=== PATIENT | female | born 1980 | race Caucasian/White ===

== ENCOUNTER → 2016-08-25 | Outpatient (CLI) | payer OTHER ==
[~2016-08-25] MED LIST: FERR1TAB23 PO; LORA10CA10; PANT40TA PO; PRENTAB26 PO; SERT-234 PO; TYLOTC500 PO
[2016-08-25 17:54] LABS: GTGD 50 Grams
== END | disposition home or self-care (01) ==
LOC: C.LAB1850 16:56
PROVIDERS: ATTEND Obstetrics & Gynecology
DX: O09.522 Supervision of elderly multigravida, second trimester (principal); Z3A.00 Weeks of gestation of pregnancy not specified

== ENCOUNTER → 2016-11-20 | Outpatient (CLI) | payer OTHER ==
[2016-11-20 18:48] LABS: URINE APPEARANCE CLEAR (CLEAR); URINE BILIRUBIN NEG (NEG); URINE COLOR YELLOW; URINE EPITHELIAL CELL AUTO >30 /lpf (0-5); URINE NITRITE NEG (NEG); URINE SPECIFIC GRAVITY 1.017 (1.000-1.030); UROBILINOGEN NEG (NEG)
[2016-11-20 18:51] LABS: MANUAL MICROSCOPIC REQUIRED? NO; REVIEW REQ? NO
== END | disposition home or self-care (01) ==
LOC: C.LABSPEC 18:02
PROVIDERS: ATTEND Obstetrics & Gynecology
DX: O09.523 Supervision of elderly multigravida, third trimester (principal); Z3A.00 Weeks of gestation of pregnancy not specified

== ENCOUNTER → 2016-11-20 | Outpatient (CLI) | payer OTHER ==
[2016-11-20 19:06] LABS: GTGD 50 Grams
== END | disposition home or self-care (01) ==
LOC: C.LAB1850 15:49
PROVIDERS: ATTEND Obstetrics & Gynecology
DX: O09.523 Supervision of elderly multigravida, third trimester (principal); Z3A.00 Weeks of gestation of pregnancy not specified

== ENCOUNTER → 2016-11-24 | Outpatient (CLI) | payer OTHER | END | disposition home or self-care (01) | LOC: C.LAB1850 07:00 | PROVIDERS: ATTEND Obstetrics & Gynecology | DX: O28.1 Abnormal biochemical finding on antenatal screening of mother (principal); Z3A.00 Weeks of gestation of pregnancy not specified ==

== ENCOUNTER → 2017-01-09 | Outpatient (CLI) | payer OTHER | END | disposition home or self-care (01) | LOC: C.LABSPEC 15:53 | PROVIDERS: ATTEND Obstetrics & Gynecology | DX: O09.523 Supervision of elderly multigravida, third trimester (principal); Z3A.00 Weeks of gestation of pregnancy not specified ==

== ENCOUNTER 2017-01-19 21:12 | Inpatient (IN) | payer OTHER ==
[~2017-01-19] VITALS: Ht 177.8 cm; Wt 102.1 kg
[~2017-01-19 21:12] MED LIST changes: -LORA10CA10; -SERT-234 PO
[2017-01-19] MEDS ORDERED: SERT-234 PO (22:00)
[2017-01-19 22:03] VITALS: Ht 177.8 cm; Wt 102.1 kg
[2017-01-20] MEDS ORDERED: LACTATED RINGER'S 1000ML 1,000 ML IV SCH (03:40)
[2017-01-20] MEDS ORDERED: LACTATED RINGER'S 1000ML 1,000 ML IV PRN (03:40)
[2017-01-20] MEDS ORDERED: PENICILLIN G POTASSIUM IV 6 MU in DEXTROSE 5% 250ML 250 ML IV ONE (04:00)
[2017-01-20 04:27] LABS: HEMATOCRIT 37.1 % (37-47); MEAN CELL VOLUME 89.2 fL (80-100); MEAN CORPUSCULAR HEMOGLOBIN 29.1 pg (25-34); MEAN CORPUSCULAR HGB CONC 32.6 g/dl (32-36); MEAN PLATELET VOLUME 11.6 fL (7.4-10.4); PLATELET COUNT 151 K/uL (130-400); RED BLOOD COUNT 4.16 M/uL (4.2-5.4)
[2017-01-20] MEDS: PENICILLIN G POTASSIUM IV 3 MU in DEXTROSE 5% 100ML 100 ML IV PRN ×2 (08:06→12:25)
[2017-01-20] MEDS ORDERED: MoRPHine SULFATE 10 MG/ML CARP/VIAL IV STA (08:46)
[2017-01-20] MEDS ORDERED: PROMETHAZINE HCL INJ 25 MG in SODIUM CHLORIDE 0.9% 50ML 50 ML IV ONE (09:00)
--- NOTE | 2017-01-20 13:06 | Discharge Instructions ---
Discharge Instructions Date of Service Jan 20, 2017. Admission Reason for Admission: rule out LABOR Discharge Discharge Diagnosis / Problem: irregular contractions Discharge Goals Goal(s): Continuing OB care Activity Recommendations Activity Limitations: per Instructions/Follow-up section . Instructions / Follow-Up Instructions / Follow-Up SPECIAL CARE INSTRUCTIONS: Call Doctor if: * Regular contractions every 5 minutes or greater than 12 contractions in one hour. * Bleeding * Water breaks or is leaking * Decreased movement * Fever >100.4 degrees F * Pain not relieved by routine measures or pain medication ordered. FOLLOW UP VISIT: Followup in office as scheduled this week. Current Hospital Diet Patient's current hospital diet: Regular OB Diet Discharge Diet Recommended Diet: Regular OB Diet Pending Studies Studies pending at discharge: no Medical Emergencies . Who to Call and When: Medical Emergencies: If at any time you feel your situation is an emergency, please call 911 immediately. . Non-Emergent Contact Non-Emergency issues call your: Primary Care Provider, Glass Etcher . . "Provider Documentation" section prepared by Frances Mix. . VTE Core Measure Inpt VTE Proph given/why not?: Treatment not indicated
--- NOTE | 2017-02-05 00:07 | Discharge Summary ---
Discharge Summary Date of Service Feb 05, 2017. Discharge Summary Admission Date: Jan 20, 2017 at 03:41 Discharge Date: Jan 20, 2017 Discharge Disposition: Home Principal Diagnosis: r/o labor Immunizations: Have You Had Influenza Vaccine: No History of Tetanus Vaccine?: No Hospital Course Patient came for r/o labor, was observed, discharged home not in labor. Total Time Spent: Less than 30 minutes This includes examination of the patient, discharge planning, medication reconciliation, and communication with other providers. Discharge Instructions Please refer to the electronic Patient Visit Report (Discharge Instructions) for additional information. Follow-Up in office as scheduled.
== END 2017-01-20 13:41 | disposition home or self-care (01) | DRG 780 ==
LOC: C.OPB 21:12 → C.LD 21:12 → C.OPB 01-20 03:42
PROVIDERS: ADMIT Obstetrics & Gynecology; ATTEND Obstetrics & Gynecology
DX: O47.1 False labor at or after 37 completed weeks of gestation (principal); O99.820 Streptococcus B carrier state complicating pregnancy; O09.523 Supervision of elderly multigravida, third trimester; O09.293 Supervision of pregnancy with other poor reproductive or obstetric history, third trimester; O09.43 Supervision of pregnancy with grand multiparity, third trimester; O99.353 Diseases of the nervous system complicating pregnancy, third trimester; G43.909 Migraine, unspecified, not intractable, without status migrainosus; O99.344 Other mental disorders complicating childbirth; F32.9 Major depressive disorder, single episode, unspecified; Z3A.37 37 weeks gestation of pregnancy; Z79.899 Other long term (current) drug therapy

== ENCOUNTER 2017-01-27 02:44 | Inpatient (IN) | payer OTHER ==
[~2017-01-27] VITALS: Ht 182.9 cm; Wt 101.8 kg
[~2017-01-27 02:44] MED LIST changes: -FERR1TAB23 PO; +SERT-234 PO; -TYLOTC500 PO
[2017-01-27 03:23] VITALS: Ht 182.9 cm; Wt 101.8 kg
[2017-01-27] MEDS ORDERED: LORA10CA10 (03:23)
[2017-01-27] MEDS ORDERED: LACTATED RINGER'S 1000ML 1,000 ML IV PRN (07:47)
[2017-01-27] MEDS ORDERED: LACTATED RINGER'S 1000ML 1,000 ML IV SCH (07:47)
[2017-01-27] MEDS ORDERED: PENICILLIN G POTASSIUM IV 3 MU in DEXTROSE 5% 100ML 100 ML IV PRN (08:00)
[2017-01-27] MEDS ORDERED: PENICILLIN G POTASSIUM IV 6 MU in DEXTROSE 5% 250ML 250 ML IV ONE (08:00)
[2017-01-27 08:22] LABS: MEAN CELL VOLUME 88.9 fL (80-100); MEAN CORPUSCULAR HEMOGLOBIN 28.8 pg (25-34); MEAN CORPUSCULAR HGB CONC 32.4 g/dl (32-36); MEAN PLATELET VOLUME 10.8 fL (7.4-10.4); PLATELET COUNT 151 K/uL (130-400); RED BLOOD COUNT 4.16 M/uL (4.2-5.4); WHITE BLOOD COUNT 12.09 K/uL (4.8-10.8)
[2017-01-27] MEDS ORDERED: EpHEDrine SULFATE INJ 50 MG/ML AMP ONE (10:14)
[2017-01-27] MEDS ORDERED: FENTANYL 2MCG/ML ROPIV 1.25MG/ML 100ML BAG EPI ONE (10:14)
[2017-01-27] MEDS ORDERED: BUPIVACAINE 0.25% 30 ML VIAL ONE (10:14)
[2017-01-27] MEDS ORDERED: FENTANYL CITRATE INJ 50 MCG/1 ML 2 ML VIAL ONE (10:15)
[2017-01-27] MEDS ORDERED: LACTATED RINGER'S 1000ML 500 ML IV PRN ×2 (10:58→13:19)
[2017-01-27] MEDS ORDERED: FENTANYL 2MCG/ML ROPIV 1.25MG/ML 100ML BAG EPI PRN (11:00)
[2017-01-27] MEDS ORDERED: NALOXONE HCL 0.4 MG/1 ML VIAL/CARP IV PRN (11:00)
[2017-01-27] MEDS ORDERED: EpHEDrine SULFATE INJ 50 MG/ML AMP IV PRN (11:00)
[2017-01-27] MEDS ORDERED: OXYTOCIN 30 UNITS/500ML NSS IV PRN ×2 (13:30→16:00)
[2017-01-27] MEDS ORDERED: LANOLIN OINT EXT PRN ×2 (16:00)
[2017-01-27] MEDS ORDERED: SUPERCREAM 0.870 % 15GM JAR EXT PRN (16:00)
[2017-01-27] MEDS ORDERED: HYDROCORTISONE ACETATE 25 MG SUPP PR PRN (16:00)
[2017-01-27] MEDS ORDERED: OXYCODONE/ACETAMINOPHEN 5-325 TAB PO PRN (16:00)
[2017-01-27] MEDS ORDERED: BENZOCAINE 20% AER SPR 82.5 GM CAN EXT PRN (16:00)
[2017-01-27] MEDS ORDERED: DIPHTHERIA/TETANUS/PERTUSSIS 0.5 ML SYR/VIAL IM. ONE (16:00)
[2017-01-27] MEDS ORDERED: ACETAMINOPHEN 325 MG TAB PO PRN (16:00)
--- NOTE | 2017-01-27 16:13 | [facility] Operative Report ---
Operative Report Operative Date Jan 27, 2017. Pre-Operative Diagnosis at 38 6/7 weeks prolonged latent phase' gbs positive Post-Operative Diagnosis same Procedure(s) Performed gbs prophylaxis arom pitocin augmentation first degree repair Surgeon Laverne Technical Intern Surgeon(s) none Estimated Blood Loss 350cc Findings viable male , dalila, apgars 8/9, weight pending Fluids n/a Specimens none Drains none Anesthesia epidural Complication(s) None Disposition L&D Indications at 38 6/7 weeks with cervical change and prolonged latent phase. GBS positive. Description of Procedure Patient was admitted to labor and delivery after changing from 4cm to 5cm. As she was GBS positive, PNC was initiated. AFter her second dose, AROM and pit augmentation initiated. When she became c/c/+1, she pushed for 2 contractions to deliver a viable male in DALILA. No nuchal cord. Anterior shoulder and body delivered easily. Infant placed on maternal abdomen where cord clamped and cut. There was immediate cry and nose and mouth bulb suctioned. Placenta delivered s/i/3vc. cx/s/r intact. Small tear at the posterior introitus repaired with one [id number]-[id number] suture of 4-0 Vicryl. Hemostasis with dilute pit and massage. ebl--350cc. apgars 8/9. weight pending. Mother and baby doing well at the end of the delivery. I attest to the content of the Intraoperative Record and any orders documented therein. Any exceptions are noted below.
--- NOTE | 2017-01-27 17:15 | Anesthesia Procedure Note ---
Anesthesia Epidural Removal Nt Date & Time Jan 27, 2017 at 17:15 Vital Signs Pain Intensity: 2.0 Notes Mental Status: alert / awake / arousable, participated in evaluation Nausea / Vomiting: adequately controlled Pain: adequately controlled Airway Patency, RR, SpO2: stable & adequate BP & HR: stable & adequate Hydration State: stable & adequate Neuraxial Anesthesia: was administered Anesthetic Complications: no major complications apparent, pt satisfied with anesthetic care Epidural: removed without complications, with tip intact
[2017-01-27 20:08] VITALS: BP 141/71; PULSE 72; TEMP 37; O2SAT 99
[2017-01-27] MEDS: DOCUSATE SODIUM 100 MG CAP PO SCH (20:40)
[2017-01-27] MEDS: IBUPROFEN 600 MG TAB PO PRN (21:36)
[2017-01-27 23:25] VITALS: BP 109/70; PULSE 64; TEMP 36.8
[2017-01-28] MEDS: IBUPROFEN 600 MG TAB PO PRN ×4 (01:09→20:18)
[2017-01-28 04:10] VITALS: BP 108/76; PULSE 83; TEMP 36.8
[2017-01-28] MEDS: DOCUSATE SODIUM 100 MG CAP PO SCH ×2 (08:01→20:17)
[2017-01-28] MEDS: PRENATAL VITAMIN TAB PO SCH (08:01)
[2017-01-28] MEDS: SERTRALINE HCL 100 MG TAB PO SCH (08:01)
[2017-01-28 08:30] VITALS: BP 119/72; PULSE 103; TEMP 36.8
--- NOTE | 2017-01-28 09:04 | Progress Note ---
Subjective Jan 28, 2017. Subjective conversation w/ patient, physical exam, lab review Ambulation: ambulating normally Voiding: no voiding problems Passing Gas: Yes Diet Tolerance: Regular Diet Lochia: Small Feeding Type: Breast Feeding Pain: controlled Objective Vital Signs Date Time Temp Pulse Resp B/P (MAP) Pulse Ox O2 Delivery O2 Flow Rate FiO2 01/28/17 04:10 36.8 83 18 108/76 (87) Room Air 01/27/17 23:25 36.8 64 18 109/70 (83) Room Air 01/27/17 23:25 Room Air 01/27/17 20:08 37.0 72 16 141/71 (94) 99 Room Air 01/27/17 20:08 Room Air Physical Exam General Appearance: WELL-APPEARING, WD/WN, NO APPARENT DISTRESS Respiratory/Chest: lungs clear, normal breath sounds Cardiovascular: regular rate, rhythm Abdomen: non tender, soft Fundus: Firm, Non-Tender, Relation to Umbilicus (at u) Extremities: non-tender, normal inspection Laboratory Results Last 24 Hours Test 01/28/17 06:37 Hemoglobin 11.2 g/dL Hematocrit 35.0 % Assessment and Plan Post- Day#: 1 Continue Routine Care: Doing well. Routine care. Unsure about d/c today or tomorrow. d/c instructions reviewed.
--- NOTE | 2017-01-28 09:05 | Discharge Instructions ---
Discharge Instructions Date of Service Jan 28, 2017. Admission Reason for Admission: Check Labor Discharge Discharge Diagnosis / Problem: s/p vaginal delivery Discharge Goals Goal(s): Routine recovery after delivery Medications Continue Dispensed Medications: supercream, dermaplast, tucks, lansinoh Activity Recommendations Activity Limitations: per Instructions/Follow-up section . Instructions / Follow-Up Instructions / Follow-Up ACTIVITY RECOMMENDATIONS: * Gradual return to full activity over the next 2-3 weeks. * No lifting - nothing heavier than baby over the next 2-3 weeks. * Do not engage in vigorous exercise, sexual activity or sports until cleared by your physician. * Do not drive or operate any motorized equipment until cleared by your physician. * You may shower/bathe daily. MEDICATIONS: For discomfort or pain, you may use Acetaminophen (Tylenol), Ibuprofen (Advil), or Naproxen (Aleve) following the package directions. For constipation you may use Colace following the package directions. BREAST CARE: If you are not breast feeding: * Wear a supportive bra 24 hours a day for one to two weeks. * Avoid stimulating your breasts and nipples as much as possible during the first few weeks after delivery. * When taking a shower, have the warm water hit your back, not breasts. * When your breasts feel full, apply ice packs. Usually three to four times a day helps ease the discomfort. * Take a mild pain medication (Tylenol / Motrin) when you are uncomfortable. If breast feeding: * Use breast milk to lubricate nipples. Lansinoh cream may be used for sore nipples. You do not need to remove cream prior to breast feeding. If using a different brand of cream, check the label for directions regarding removal of cream prior to nursing. * Wear a supportive bra. * If having problems with breasts or breast feeding, call a crm consultant or your health care provider. EPISIOTOMY CARE: After delivery, if you have an episiotomy (stitches), the following steps will ease discomfort and aid healing. * For the first 24 hours after delivery, place ice packs next to your episiotomy to help reduce swelling. * After the first 24 hour-period, sitz baths, either portable or in the tub, are suggested. A shower with a shower arm sprayed over the episiotomy may be comforting. * [place] care should be done after each voiding and bowel movement. Squirt warm water from a plastic bottle over the perineum (region of the body between the anus and urinary opening) and pat dry. * Use Dermoplast to ease discomfort. Shake container. [place] directly over the episiotomy. Place a Tucks on a clean sanitary pad next to your episiotomy. SPECIAL CARE INSTRUCTIONS: When you are discharged from the hospital, it is important for you to follow the instructions listed below: * During the first week at home, you should be able to care for yourself and your baby. In addition, the usual light household activities are encouraged. * Limit your activities to the way you feel. Do not try to clean the house or move furniture. Be sensible. * If you actively engage in sports and have done so up until the time of your delivery, you may resume these activities as soon as you feel able. This may take up to one month or even longer. Use good judgment. * Continue to take your vitamins for at least six weeks after the of your baby. * Your diet need not be limited unless you were on a special diet before your delivery. Breast-feeding mothers need around 2500 calories per day and at least 64-80 ounces of fluid per day (8 to 10 glasses). * You should eat foods from the four major food groups. Crash diets or fad diets are to be avoided. Eating lean meats, fresh fruits and vegetables, low-fat dairy products, high fiber foods and a regular exercise program, will help you get back to your pre- weight without putting your health at risk. * Constipation is sometimes a problem after delivery. Take a mild laxative as needed. If breast feeding, Milk of Magnesia is acceptable to use. You may use a suppository or Fleets enema if no episiotomy. * A daily shower or tub bath is suggested. Be sure to thoroughly and gently dry the perineum. * A bloody vaginal discharge will usually continue until around four weeks post . A small amount of bleeding may continue for as long as six weeks. Vaginal discharge changes from the bright red bleeding after delivery to pink then brownish and finally yellowish-pink before becoming white and disappearing. * Bleeding may increase with activity. Your first period may come in 4-8 weeks. If you are breast feeding, your period may be delayed even longer. * [place] (sex) can begin whenever both you and your partner feel comfortable and do not have any form of genital infection. It is recommended that you wait at least six weeks for internal and external healing to occur. If you have questions, please talk to your health care practitioner. A condom should be used to prevent infection and . * Foreplay, gentle intercourse and lubrication is very important the first several times to prevent pain. A water-based lubricant such as K-Y jelly or Astroglide may be used. * If you have RH negative blood and your baby is RH positive, you will receive RHOGAM by injection prior to discharge. The nurse will give you a card to keep with you that has the date and place that you received RHOGAM after delivery. * During your care, you had a Rubella screen done to check for the presence of rubella antibodies in your blood. If your test was negative, you will receive a Rubella vaccine prior to discharge. This vaccine may cause a fever, soreness at the injection site and flu-like symptoms. If these symptoms persist, notify your health care practitioner. is not advised for one month after a Rubella vaccine. * Verbalizes understanding of car seat law as reviewed with patient nursing. * Car Seat hand-out given and reviewed with patient by nursing. * Shaken baby information reviewed with patient by nursing. Call you doctor if: * Heavy bleeding (saturating several pads an hour) or passing clots the size of your fist. * A fever >101 degrees F (38.3 degrees C) on two occasions four hours apart and /or chills. * Unusual pain in the pelvic or vaginal areas. * "Baby Blues" lasting longer than two weeks. If you have any questions or concerns, call your health care practitioner at . FOLLOW UP VISIT: * Please call the office at to schedule a 6 week examination. It is important you keep this appointment. It is important for you to make arrangements for either yearly or twice yearly check-ups thereafter. Current Hospital Diet Patient's current hospital diet: Regular OB Diet Discharge Diet Recommended Diet: Regular Diet Procedures Procedures Performed: gbs prophylaxis arom pitocin augmentation first degree repair Pending Studies Studies pending at discharge: no Medical Emergencies . Who to Call and When: Medical Emergencies: If at any time you feel your situation is an emergency, please call 911 immediately. . Non-Emergent Contact Non-Emergency issues call your: Eligibility Services Representative . . "Provider Documentation" section prepared by Marga Galloway. . VTE Core Measure Inpt VTE Proph given/why not?: Treatment not indicated
[2017-01-28 12:30] VITALS: BP 124/72; PULSE 99; TEMP 36.4
[2017-01-28 15:50] VITALS: BP 104/64; PULSE 86; TEMP 37
[2017-01-28 23:35] VITALS: BP 115/66; PULSE 76; TEMP 36.8
[2017-01-29] MEDS: IBUPROFEN 600 MG TAB PO PRN (04:33)
--- NOTE | 2017-01-29 06:37 | OB/GYN Progress Note ---
SUGAR REFINERY SUPERVISOR Progress Note Date of Service Jan 29, 2017. Subjective conversation w/ patient, physical exam, chart review, lab review Ambulation: ambulating normally Voiding: no voiding problems Passing Gas: Yes Diet Tolerance: Regular Diet Lochia: Small Feeding Type: Breast Feeding Pain: Says low cramping with breast feeding only Review of Systems Constitutional: No fever, No chills Respiratory: No cough, No shortness of breath Cardiac: No chest pain Abdomen: No nausea, No vomiting, No diarrhea Female : No dysuria Objective Vital Signs Date Time Temp Pulse Resp B/P (MAP) Pulse Ox O2 Delivery O2 Flow Rate FiO2 01/28/17 23:35 Room Air 01/28/17 23:35 36.8 76 20 115/66 (82) Room Air 01/28/17 15:50 Room Air 01/28/17 15:50 37.0 86 20 104/64 (77) Room Air 01/28/17 12:30 36.4 99 20 124/72 (89) 01/28/17 08:30 36.8 103 22 119/72 (88) Physical Exam General Appearance: WELL-APPEARING, WD/WN, NO APPARENT DISTRESS Respiratory/Chest: lungs clear, normal breath sounds Cardiovascular: regular rate, rhythm Abdomen: normal bowel sounds, non tender, soft Fundus: Firm, Non-Tender, Relation to Umbilicus (Approx two down) Extremities: normal range of motion, non-tender, no calf tenderness, + swelling (Minimal bilateral lower leg swelling) Laboratory Results Last 24 Hours Test 01/28/17 06:37 Hemoglobin 11.2 g/dL Hematocrit 35.0 % Assessment and Plan Post- Day Number: 2 Continue Routine Care: 36yo s/p , now PPD #2. - Blood type O pos. GBS positive, s/p abx x2. Rubella immune. - Vital signs reviewed and stable. - Pain controlled with motrin. - Minimal lower leg swelling, improved from prepartum. No tenderness on calf palpation (B). Encourage ambulation. - Encourage breast feeding. - Hemoglobin preop 12.0, post-delivery 11.2. Bleeding has improved. Continue to monitor clinically. - Continue routine post-vaginal delivery care. - Pt agreed with above plan, all current questions answered. Ronal Campbell MD, PGY1 Community Service Director Physician Supervision Note: I interviewed and examined the patient. Discussed with Dr. Campbell and agree with findings and plan as documented in the note. Any exceptions or clarifications are listed here: doing well, plan d/c. Instructions given. Documented By: Marga Galloway Resident Tracking Resident Involvement: Resident Care Provided Care Provided: OB Delivery (morning rounds)
[2017-01-29] MEDS: PRENATAL VITAMIN TAB PO SCH (07:59)
[2017-01-29] MEDS: DOCUSATE SODIUM 100 MG CAP PO SCH (07:59)
[2017-01-29] MEDS: SERTRALINE HCL 100 MG TAB PO SCH (07:59)
[2017-01-29 08:10] VITALS: BP 125/76; PULSE 93; TEMP 36.6
[2017-01-29 10:30] VITALS: BP_DIAS 76; PULSE 93; TEMP 36.6
== END 2017-01-29 10:55 | disposition home or self-care (01) | DRG 775 ==
LOC: C.OPB 02:44 → C.LD 02:45 → C.OPB 07:48 → C.LD 07:48 → C.OBG 18:52
PROVIDERS: ADMIT Obstetrics & Gynecology; ATTEND Obstetrics & Gynecology
PROC: 0HQ9XZZ Repair Perineum Skin, External Approach (ICD-10-PCS; principal; 2017-01-27)
PROC: 10E0XZZ Delivery of Products of Conception, External Approach (ICD-10-PCS; principal; 2017-01-27)
DX: O63.1 Prolonged second stage (of labor) (principal); O09.523 Supervision of elderly multigravida, third trimester; Z37.0 Single live birth; O99.824 Streptococcus B carrier state complicating childbirth; O70.0 First degree perineal laceration during delivery; Z3A.38 38 weeks gestation of pregnancy